=== PATIENT | male | born 1990 | race Caucasian/White ===

== ENCOUNTER 2020-06-14 16:02 | Emergency (ER) | payer OTHER ==
[~2020-06-14] VITALS: Ht 175.3 cm; Wt 77.1 kg
[2020-06-14] MEDS ORDERED: Prednisone20 MG PO (16:53)
== END 2020-06-14 16:59 | disposition home or self-care (01) ==
LOC: ER 16:02
DX: L23.7 Allergic contact dermatitis due to plants, except food (principal)
CPT/HCPCS: 96372; 99283-25; J3301